=== PATIENT | female | born 1995 | race Caucasian/White ===

== ENCOUNTER 2021-01-03 23:17 | Emergency (ER) | payer OTHER, MEDICAID ==
[~2021-01-03] VITALS: Ht 170.2 cm; Wt 63.5 kg
[~2021-01-03 23:17] MED LIST: BACTRIM DS TAB1 EACH PO; CYCLOBENZAPRINE5 MG PO; DIFLUCAN150 MG PO; FLAGYL500 MG PO; MACROBID 100 M100 M2 PO; NAPROSYN500 MG PO; ZOFRAN ODT4 MG PO
[2021-01-03] MEDS ORDERED: [UNRECOGNIZED DRUG - OTHER] (23:34)
[2021-01-03 23:41] LABS: URINE BILIRUBIN NEGATIVE (Negative); URINE BLOOD 2+ (Negative); URINE COLOR YELLOW; URINE GLUCOSE-RANDOM NEGATIVE (Negative); URINE KETONES NEGATIVE (Negative); URINE LEUKOCYTES-REFLEX 1+ (Negative); URINE PROTEIN 2+ (Negative); URINE SPECIFIC GRAVITY >= 1.030 (1.005-1.030); URINE UROBILINOGEN 0.2 E.U./dl (0.2-1.0)
[2021-01-03 23:42] LABS: URINE CLARITY CLOUDY; URINE NITRITE-REFLEX POSITIVE (Negative)
[2021-01-03 23:45] LABS: BACTERIA-REFLEX >30 Many /HPF (None Seen); CASTS None Seen /LPF (None Seen); CRYSTALS None Seen /LPF (None Seen); MUCUS 4-6 Moderate strn/LPF (None Seen); SQUAMOUS 0-3 Few /LPF (0-3); URINE RBC >20 Many /HPF (0-2); URINE WBC-REFLEX >25 Many /HPF (0-5); WBC CLUMPS Moderate (None Seen)
[2021-01-03 23:50] LABS: AMP/METHAMP POSITIVE (Negative); BARBITURATES Negative (Negative); BENZODIAZEPINES Negative (Negative); COCAINE Negative (Negative); METHADONE Negative (Negative); OPIATES Negative (Negative); PCP Negative (Negative); THC POSITIVE (Negative)
[2021-01-04] MEDS ORDERED: PYRIDIUM200 MG PO (00:08)
[2021-01-04] MEDS ORDERED: TRAMADOL 50 MG50 MG PO (00:08)
[2021-01-04] MEDS ORDERED: MACROBID 100 M100 M1 PO (00:08)
[2021-01-04 00:30] VITALS: BP 112/70
== END 2021-01-04 00:30 | disposition home or self-care (01) ==
LOC: M.ERS 23:17
PROVIDERS: Emergency Medicine
DX: N39.0 Urinary tract infection, site not specified (principal); Z88.1 Allergy status to other antibiotic agents